=== PATIENT | female | born 1995 | race Caucasian/White ===

== ENCOUNTER 2016-08-01 06:23 | Day surgery (SDC) | payer BC ==
[2016-07-28 09:51] VITALS: BMI 28.8
[~2016-08-01 06:23] MED LIST: DEXAMETHASONE SOD PHOSPHATE 10 MG/ML 1 ML VIAL IV ONE; DEXAMETHASONE SOD PHOSPHATE 4 MG/ML 1 ML VIAL IV ONE; FAMOTIDINE 20 MG/2 ML VIAL IV ONE; ONDANSETRON 4 MG/2 ML VIAL IVP ONE; Pre Op ABX Message 1 EACH MISC MISCELLANE ONE
[2016-08-01] MEDS: LACTATED RINGERS 1,000 ML IV SCH ×2 (06:59→10:31)
[2016-08-01] MEDS ORDERED: LIDOCAINE 1% 20 ML VIAL (10MG/ML) FOR IV START INTRADERMA ONE (07:01)
[2016-08-01] MEDS ORDERED: SCOPOLAMINE 1.5MG/72HR PATCH TRANSDERM ONE (07:01)
[2016-08-01] MEDS ORDERED: LIDOCAINE 1% INJ 10MG/ML (20 ML MDV) ONE (07:27)
[2016-08-01] MEDS ORDERED: NEOSTIGMINE 1 MG/ML 10 ML VIAL ONE (07:27)
[2016-08-01] MEDS ORDERED: PROPOFOL 10 MG/ML 20 ML VIAL IV ONE (07:27)
[2016-08-01] MEDS ORDERED: GLYCOPYRROLATE 0.2 MG/ML 2 ML VIAL ONE (07:27)
[2016-08-01] MEDS ORDERED: MIDAZOLAM 2 MG/2 ML VIAL ONE (07:27)
[2016-08-01] MEDS ORDERED: ROCURONIUM BROMIDE 10 MG/ML 10 ML VIAL IV ONE (07:27)
[2016-08-01] MEDS ORDERED: fentaNYL (PF) 50 MCG/ML 2 ML AMP ONE (07:27)
[2016-08-01] MEDS ORDERED: DEXAMETHASONE SOD PHOS (MDV) 100 MG/10 ML VIAL ONE (07:27)
--- NOTE | 2016-08-01 08:18 | P.OP ---
Date of Procedure: 08/01/16 Preoperative Diagnosis: Chronic Tonsillitis Chronic cryptic tonsillitis Tonsillar hypertrophy Postoperative Diagnosis: Same Procedure(s) Performed: Tonsillectomy Implants: Anesthesia: MAXIMINOA Surgeon: Yariel Christopher Estimated Blood Loss (ml): 5 Pathology: other (Bilateral tonsils) Condition: stable Disposition: PACU Indications for Procedure: Is a 21-year-old white female whose had difficulties with chronic and recurrent tonsillitis as well as chronic tonsillar hypertrophy and cryptic debris in the tonsils Operative Findings: Tonsils +3 bilaterally and are cryptic with sulfur granules in the crypts Description of Procedure: The patient underwent operative suite and placed in a supine position. Patient underwent induction of general anesthesia with oral endotracheal intubation without difficulty. Patient prepped and draped in usual aseptic fashion. The McIvor mouthgag was placed. The soft palate was palpated and no submucous cleft was noted. The left tonsil was grasped with a curved Allis clamp and dissected from the tonsillar fossa in a superior to inferior direction using both blunt and electrocautery dissection until the tonsil was removed. Once tonsils removed hemostasis was gained with suction cautery. Once hemostasis was obtained attention was turned to the right where the right tonsil was removed exactly as the left had been. Once this tonsils removed hemostasis was gained with suction cautery. Once hemostasis was obtained and remained good in both tonsillar fossa the patient was suctioned in oral gastric fashion the patient was allowed to emerge from general anesthesia having tolerated procedure well was extended the operating suite and transferred postoperative recovery area in satisfactory condition.
[2016-08-01 08:39] VITALS: RESP 16; TEMP 97.3
[2016-08-01 10:02] VITALS: BP 140/79; PULSE 54
== END 2016-08-01 10:38 | disposition home or self-care (01) ==
LOC: OR 06:23
PROVIDERS: ATTEND Otolaryngology
DX: J35.01 Chronic tonsillitis (principal); Z88.0 Allergy status to penicillin; Z88.1 Allergy status to other antibiotic agents; Z79.3 Long term (current) use of hormonal contraceptives
CPT/HCPCS: 42826; 81025; 88304; J2250; J1100 ×2; J2710; J2405; J2001; J3010; J2704

== ENCOUNTER → 2017-04-30 | Outpatient (CLI) | payer BC ==
[2017-04-30 10:36] LABS: HCT 41.9 % (34.0-46.0); HGB 13.6 gm/dL (11.4-16.0); MCH 26.3 pg (25.0-35.0); MCHC 32.3 g/dL (31.0-37.0); MCV 81.3 fL (80.0-100.0); Mean Platelet Volume 7.2; Platelet Count 246 k/uL (150-450); RBC 5.16 m/uL (3.80-5.40); RDW 13.2 % (11.5-15.5)
[2017-04-30 10:53] LABS: ALT 29 U/L (9-52); AST 23 U/L (14-36); Alkaline Phosphatase 79 U/L (38-126); Anion Gap 9 mmol/L; Blood Urea Nitrogen 11 mg/dL (7-17); Calcium 9.7 mg/dL (8.4-10.2); Carbon Dioxide 27 mmol/L (22-30); Chloride 105 mmol/L (98-107); Cholesterol 146 mg/dL (<200); Glucose 87 mg/dL (74-99); HDL Cholesterol 58 mg/dL (40-60); LDL Cholesterol,Calculated 65 mg/dL (0-99); Potassium 4.6 mmol/L (3.5-5.1); Sodium 141 mmol/L (137-145); Total Bilirubin 0.3 mg/dL (0.2-1.3); Total Protein 6.9 g/dL (6.3-8.2); Triglycerides 115 mg/dL (<150)
== END | disposition home or self-care (01) ==
LOC: LABWHC1 09:48
DX: R63.5 Abnormal weight gain (principal)
CPT/HCPCS: 36415; 80053; 80061; 84443; 85027

== ENCOUNTER → 2021-01-18 | Outpatient (CLI) | payer BC | END | disposition home or self-care (01) | LOC: LABWHC1 13:42 | PROVIDERS: ATTEND Family Medicine | DX: J02.9 Acute pharyngitis, unspecified (principal); R13.10 Dysphagia, unspecified | CPT/HCPCS: 87070; 87430; U0003 ==

== ENCOUNTER 2022-06-22 12:01 | Emergency (ER) | payer BC ==
[2022-06-22 12:26] VITALS: BP 143/80; RESP 18
[2022-06-22 12:28] VITALS: TEMP 98.7
[2022-06-22] MEDS ORDERED: PYRIDOXINE 100 MG/ML 1 ML VIAL IVP ONE (12:41)
[2022-06-22] MEDS ORDERED: SODIUM CHLORIDE 0.9% 2,000 ML IV STA (12:41)
[2022-06-22] MEDS ORDERED: diphenhydrAMINE 50 MG/ML 1 ML VIAL IVP STA (12:41)
[2022-06-22] MEDS ORDERED: ACETAMINOPHEN TAB 325 MG TAB PO STA (12:41)
--- NOTE | 2022-06-22 12:47 | ED ---
Abdominal Pain HPI - General Chief Complaint: Abdominal Pain Stated Complaint: 5 weeks Preg. Abd pain Time Seen by Provider: 06/22/22 12:21 Source: patient, RN notes reviewed Mode of arrival: ambulatory Limitations: no limitations - History of Present Illness Initial Comments: This is a 27-year-old female who presents to the emergency department for abdo gilmar pain in . Patient is currently 5.5 weeks and . 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 Patient states that this started 1-2 days ago. Also has pain in the lower back. She is not taking anything for her pain, as she is unsure what she can take in . Does report dry heaving all day yesterday and states that her mom had morning sickness when she was as well. Denies any changes in bowel or bladder habits. Denies any vaginal bleeding or discharge. Denies any fevers, chills, sore throat, cough, dyspnea, chest pain, pa lpitations, diarrhea, or headaches. MD Complaint: abdominal pain Associated Symptoms: nausea, vomiting - Related Data Home Medications Medication Instructions Recorded Confirmed desogestreL-ethinyl estradioL 1 tab PO HS 11/22/15 08/01/16 [Apri 28 Day Tablet] Previous Rx's Medication Instructions Recorded Doxylamine Succinate/Vit B6 1 each PO DIRECTED PRN #30 tab 06/22/22 [Doxylamine-Pyridoxine 10-10 mg] Allergies Allergy/AdvReac Type Severity Reaction Status Date / Time cephalexin [From Keflex] Allergy Unknown Verified 06/22/22 12:26 Childhood Penicillins Allergy Unknown Verified 06/22/22 12:26 Childhood Review of Systems ROS Statement: Those systems with pertinent positive or pertinent negative responses have been documented in the HPI. ROS Other: All systems not noted in ROS Statement are negative. Past Medical History Past Medical History: No Reported History History of Any Multi-Drug Resistant Organisms: None Reported Past Surgical History: Tonsillectomy Additional Past Surgical History / Comment(s): wisdom teeth removal Past Anesthesia/Blood Transfusion Reactions: Motion Sickness Past Psychological History: No Psychological Hx Reported Smoking Status: Never smoker Past Alcohol Use History: None Reported Past Drug Use History: None Reported - Past Family History Mother Family Medical History: No Reported History General Exam Limitations: no limitations General appearance: alert, in no apparent distress Head exam: Present: atraumatic, normocephalic, normal inspection Respiratory exam: Present: normal lung sounds bilaterally. Absent: respiratory distress, wheezes, rales, rhonchi, stridor Cardiovascular Exam: Present: regular rate, normal rhythm, normal heart sounds. Absent: systolic murmur, diastolic murmur, rubs, gallop, clicks Back exam: Absent: tenderness Neurological exam: Present: alert, oriented X3, CN II-XII intact Psychiatric exam: Present: normal affect, normal mood Skin exam: Present: warm, dry, intact, normal color. Absent: rash Course Vital Signs 06/22/22 06/22/22 12:23 15:46 Temperature 98.7 F Pulse Rate 105 H 92 Respiratory 18 18 Rate Blood Pressure 143/80 O2 Sat by Pulse 98 98 Oximetry Medical Decision Making - Medical Decision Making This is a 27-year-old female who presents to the emergency department for abdominal pain in . Was pt. sent in by a medical professional or institution? @ -No Did you speak to anyone other than the patient for history? @ -No Did you review nursing and triage notes? @ -Yes, and I agree, it is accurate with regards to the patient's symptoms. Were old charts reviewed? @ -No Differential Diagnosis? @ -Differential Abdominal Pain Women: Appendicitis, Cholecystitis, diverticulosis, ischemic bowel, pancreatitis, hepatitis, UTI, gastroenteritis, AAA, incarcerated hernia, bowel obstruction, constipation, inflammatory bowel, hepatitis, peptic ulcer disease, splenic infarction, perforated viscus, vulvitis, ovarian torsion, PID, kidney stone, placenta abruption, this is not meant to be an all-inclusive list What testing was considered but not performed? (CT, X-rays, U/S, labs)? Why? @ -None What meds were considered but not given? Why? @ -None Did you discuss the management of the patient with other professionals? @ -No Did you reconcile home meds? @ -No Was smoking cessation discussed for >3mins.? @ -No Was critical care preformed (if so, how long)? @ -No Were there social determinants of health that impacted care today? How? (Homelessness, low income, unemployed, alcoholism, drug addiction, transportation, low edu. Level, literacy, decrease access to med. care, senior living, rehab)? @ -No Was there de-escalation of care discussed even if they declined? (Discuss DNR or withdrawal of care, Hospice)? @ -No What co-morbidities impacted this encounter? (DM, HTN, Smoking, COPD, CAD, Cancer, CVA, Hep., AIDS, mental health diagnosis, sleep apnea, morbid obesity)? @ - Was patient admitted / discharged? @ -Discharged. Lab work obtained suggesting minor dehydration. Patient also had low blood sugar, however she states that she has not yet eaten today. She was able to have some food in the emergency department. She was given a 2L bolus of IV fluids, Tylenol, Benadryl, and vitamin B6. She did feel like symptoms improved following medication administration. Obstetrics ultrasound obtained. Intrauterine gestational sac with yolk sac was identified. pole was not yet identified due to how early on the patient is in . Findings reviewed with the patient. Advised Tylenol as needed for any additional pain. Prescription for Diclegis provided with dosing instructions reviewed. Advised [id number] vitamin B6 and Unisom if the Diclegis is not covered by her insurance. Patient is already taking a vitamin, which she will continue to do. She'll follow up with Dr. Garcia as scheduled next month, sooner if needed. Undiagnosed new problem with uncertain prognosis? @ -None Drug Therapy requiring intensive monitoring for toxicity (Heparin, Nitro, Insulin, Cardizem)? @ -None Were any procedures done? @ -None Diagnosis/symptom? @ -Abdominal pain in Acute, or Chronic, or Acute on Chronic? @ -Acute Uncomplicated (without systemic symptoms) or Complicated (systemic symptoms)? @ -Uncomplicated Side effects of treatment? @ -None Exacerbation, Progression, or Severe Exacerbation] @ -Not applicable Poses a threat to life or bodily function? @ -No Return precautions reviewed in depth, the patient is instructed to return to the emergency department with any new, worsening, or concerning symptoms. Patient verbalized understanding. This case was discussed in detail with the attending ED physician, Dr. Valdez. Presentation, findings, and treatment plan discussed in detail as well. - Lab Data Result diagrams: 06/22/22 12:57 06/22/22 14:45 Lab Results 06/22/22 06/22/22 06/22/22 Range/Units 12:57 13:26 14:45 WBC 7.6 (3.8-10.6) k/uL RBC 4.98 (3.80-5.40) m/uL Hgb 13.1 (11.4-16.0) gm/dL Hct 40.6 (34.0-46.0) % MCV 81.5 (80.0-100.0) fL MCH 26.3 (25.0-35.0) pg MCHC 32.2 (31.0-37.0) g/dL RDW 12.9 (11.5-15.5) % Plt Count 208 (150-450) k/uL MPV 7.7 Neutrophils % 82 % Lymphocytes % 12 % Monocytes % 3 % Eosinophils % 2 % Basophils % 0 % Neutrophils # 6.2 (1.3-7.7) k/uL Lymphocytes # 0.9 L (1.0-4.8) k/uL Monocytes # 0.3 (0-1.0) k/uL Eosinophils # 0.1 (0-0.7) k/uL Basophils # 0.0 (0-0.2) k/uL Sodium 135 L (137-145) mmol/L Potassium 3.7 (3.5-5.1) mmol/L Chloride 108 H (98-107) mmol/L Carbon Dioxide 18 L (22-30) mmol/L Anion Gap 9 mmol/L BUN 9 (7-17) mg/dL Creatinine 0.54 (0.52-1.04) mg/dL Est GFR (CKD-EPI)AfAm >90 (>60 ml/min/1.73 sqM) Est GFR (CKD-EPI)NonAf >90 (>60 ml/min/1.73 sqM) Glucose 72 L (74-99) mg/dL Calcium 7.9 L (8.4-10.2) mg/dL Total Bilirubin 0.4 (0.2-1.3) mg/dL AST 25 (14-36) U/L ALT 20 (4-34) U/L Alkaline Phosphatase 61 (38-126) U/L Total Protein 6.0 L (6.3-8.2) g/dL Albumin 3.4 L (3.5-5.0) g/dL HCG, Quant 09909.8 mIU/mL Urine Color Yellow Urine Appearance Clear (Clear) Urine pH 6.0 (5.0-8.0) Ur Specific [place] 1.024 (1.001-1.035) Urine Protein Trace H (Negative) Urine Glucose (UA) Negative (Negative) Urine Ketones 2+ H (Negative) Urine Blood Negative (Negative) Urine Nitrite Negative (Negative) Urine Bilirubin Negative (Negative) Urine Urobilinogen <2.0 (<2.0) mg/dL Ur Leukocyte Esterase Moderate H (Negative) Urine RBC <1 (0-5) /hpf Urine WBC 3 (0-5) /hpf Ur Squamous Epith Cells 6 H (0-4) /hpf Urine Bacteria Rare H (None) /hpf Urine Mucus Many H (None) /hpf Blood Type Blood Type Recheck Bld Type Recheck Status 06/22/22 Range/Units 14:45 WBC (3.8-10.6) k/uL RBC (3.80-5.40) m/uL Hgb (11.4-16.0) gm/dL Hct (34.0-46.0) % MCV (80.0-100.0) fL MCH (25.0-35.0) pg MCHC (31.0-37.0) g/dL RDW (11.5-15.5) % Plt Count (150-450) k/uL MPV Neutrophils % % Lymphocytes % % Monocytes % % Eosinophils % % Basophils % % Neutrophils # (1.3-7.7) k/uL Lymphocytes # (1.0-4.8) k/uL Monocytes # (0-1.0) k/uL Eosinophils # (0-0.7) k/uL Basophils # (0-0.2) k/uL Sodium (137-145) mmol/L Potassium (3.5-5.1) mmol/L Chloride (98-107) mmol/L Carbon Dioxide (22-30) mmol/L Anion Gap mmol/L BUN (7-17) mg/dL Creatinine (0.52-1.04) mg/dL Est GFR (CKD-EPI)AfAm (>60 ml/min/1.73 sqM) Est GFR (CKD-EPI)NonAf (>60 ml/min/1.73 sqM) Glucose (74-99) mg/dL Calcium (8.4-10.2) mg/dL Total Bilirubin (0.2-1.3) mg/dL AST (14-36) U/L ALT (4-34) U/L Alkaline Phosphatase (38-126) U/L Total Protein (6.3-8.2) g/dL Albumin (3.5-5.0) g/dL HCG, Quant mIU/mL Urine Color Urine Appearance (Clear) Urine pH (5.0-8.0) Ur Specific [place] (1.001-1.035) Urine Protein (Negative) Urine Glucose (UA) (Negative) Urine Ketones (Negative) Urine Blood (Negative) Urine Nitrite (Negative) Urine Bilirubin (Negative) Urine Urobilinogen (<2.0) mg/dL Ur Leukocyte Esterase (Negative) Urine RBC (0-5) /hpf Urine WBC (0-5) /hpf Ur Squamous Epith Cells (0-4) /hpf Urine Bacteria (None) /hpf Urine Mucus (None) /hpf Blood Type O Positive Blood Type Recheck No Previous Record Bld Type Recheck Status ABR ONLY - Radiology Data Radiology results: report reviewed, image reviewed Disposition Clinical Impression: Abdominal pain during Disposition: HOME SELF-CARE Instructions (If sedation given, give patient instructions): Abdominal Pain in (ED) Additional Instructions: Return to the emergency department with any new, worsening, or concerning symptoms. Only take Tylenol as needed for abdominal pain. Do not take any vxpf-vjr-utqjoyl anti-inflammatories such as ibuprofen. Make sure that you're taking a vitamin. You can take the doxylamine pyridoxine up to 3 times daily as needed for nausea and vomiting. Start with 2 tablets at night, if symptoms persist after 2 days, increase dosage to 1 tablet every morning and 2 tablets at night. You may further increase the dose if needed to 1 tablet in the morning, 1 tablet in the mid to afternoon, and 2 tablets at night, with a maximum of 4 tablets each day. Take this on an empty stomach. If it is too expensive at the pharmacy, you can purchase ybmv-gaf-ifglxyw vitamin B6 and Unisom for the same effect. Follow up with Dr. Garcia as scheduled. Prescriptions: Doxylamine Succinate/Vit B6 [Doxylamine-Pyridoxine 10-10 mg] 1 each PO DIRECTED PRN #30 tab PRN Reason: Nausea And Vomiting Is patient prescribed a controlled substance at d/c from ED?: No Referrals: Melany,Shan, MD [Primary Care Provider] - 1-2 days
[2022-06-22 13:10] LABS: Basophils % (A) 0 %; Eosinophils # (A) 0.1 k/uL (0-0.7); Eosinophils % (A) 2 %; HCT 40.6 % (34.0-46.0); HGB 13.1 gm/dL (11.4-16.0); Lymphocytes # (A) 0.9 k/uL (1.0-4.8); Lymphocytes % (A) 12 %; MCH 26.3 pg (25.0-35.0); MCHC 32.2 g/dL (31.0-37.0); MCV 81.5 fL (80.0-100.0); Mean Platelet Volume 7.7; Monocytes # (A) 0.3 k/uL (0-1.0); Monocytes % (A) 3 %; Neutrophils # (A) 6.2 k/uL (1.3-7.7); Neutrophils % (A) 82 %; Platelet Count 208 k/uL (150-450); RBC 4.98 m/uL (3.80-5.40); RDW 12.9 % (11.5-15.5); WBC 7.6 k/uL (3.8-10.6)
[2022-06-22 13:44] LABS: Appearance,Urine Clear (Clear); Bacteria,Urine Rare /hpf; Bilirubin,Urine Negative (Negative); Blood,Urine Negative (Negative); Color,Urine Yellow; Glucose,Urine (UA) Negative (Negative); Ketones,Urine 2+ (Negative); Leukocyte Esterase,Urine Moderate (Negative); Mucus,Urine Many /hpf; Nitrite,Urine Negative (Negative); Protein,Urine Trace (Negative); RBC,Urine <1 /hpf (0-5); Specific Gravity,Urine 1.024 (1.001-1.035); Squamous Epithelial Cell,Urine 6 /hpf (0-4); Urobilinogen,Urine <2.0 mg/dL (<2.0); WBC,Urine 3 /hpf (0-5)
--- NOTE | 2022-06-22 14:23 | US ---
EXAMINATION TYPE: Transabdominal DATE OF EXAM: 06/22/2022 2:12 PM COMPARISON: NONE CLINICAL INDICATION: Female, 27 years old with history of Abdominal pain in ; abdominal pain EXAM PERFORMED: Transvaginal (TV) and Transabdominal (TA) EXAM MEASUREMENTS: GESTATIONAL AGE / DATING Physician Established: Not yet established Dates by LMP: (5 weeks/4 days) EDC: 02/18/23 Dates by First Scan: No previous this is first scan Dates by Current Scan for: (5 weeks/1 days) - MSD MATERNAL ANATOMY Uterus: 7.7 x 4.9 x 5.7cm Right Ovary: 3.1 x 2.6 x 2.7cm Left Ovary: 2.7 x 1.9 x 1.9cm Post CDS / Adnexa: appears wnl Presence of free fluid: no Presence of corpus luteal cyst: yes, right ovary = 1.8 x 2.0 x 2.0cm GESTATION / SURVEY MSD: 1.1cm (5 weeks/1 days) Yolk Sac (normal less than 6mm): 2mm IUP: no evidence of pole at this time Date of LMP: 05/14/22 Beta HcG (if available): Not available at this time IMPRESSION: Intrauterine gestational sac with yolk sac identified corresponding to ultrasound age of 5 weeks 1 da y. No pole is identified at this time likely due to early gestational age. Recommend follow-up with pelvic ultrasound and serial beta hCG to ensure further development of the fetus.
[2022-06-22 15:20] LABS: ALT 20 U/L (4-34); AST 25 U/L (14-36); African American GFR (CKD) >90 (>60 ml/min/1.73 sqM); Albumin 3.4 g/dL (3.5-5.0); Alkaline Phosphatase 61 U/L (38-126); Anion Gap 9 mmol/L; Blood Urea Nitrogen 9 mg/dL (7-17); Calcium 7.9 mg/dL (8.4-10.2); Carbon Dioxide 18 mmol/L (22-30); Chloride 108 mmol/L (98-107); Glucose 72 mg/dL (74-99); Non-African American GFR(CKD) >90 (>60 ml/min/1.73 sqM); Potassium 3.7 mmol/L (3.5-5.1); Sodium 135 mmol/L (137-145); Total Bilirubin 0.4 mg/dL (0.2-1.3)
[2022-06-22 15:36] LABS: HCG,Quantitative Serum 12125.8 mIU/mL
[2022-06-22 15:47] VITALS: PULSE 92
== END 2022-06-22 15:47 | disposition home or self-care (01) ==
LOC: EC 12:01
DX: O26.891 Other specified pregnancy related conditions, first trimester (principal); R10.9 Unspecified abdominal pain; Z88.0 Allergy status to penicillin; Z88.1 Allergy status to other antibiotic agents; Z3A.01 Less than 8 weeks gestation of pregnancy
CPT/HCPCS: 36415; 86900; 86901; 80053; 85025; 81001; 84702; 76801; 76817; 99284; 96374; 96375; 96361 ×2; J1200; J3415

== ENCOUNTER 2023-01-28 18:42 | Outpatient (CLI) | payer BC ==
[2023-01-28 20:03] LABS: Eosinophils % (A) 1 %; HCT 32.3 % (34.0-46.0); HGB 10.7 gm/dL (11.4-16.0); Hypochromasia Slight; Lymphocytes % (A) 28 %; MCH 25.2 pg (25.0-35.0); MCHC 33.3 g/dL (31.0-37.0); MCV 75.9 fL (80.0-100.0); Monocytes % (A) 5 %; Neutrophils % (A) 64 %; Platelet Count 213 k/uL (150-450); RBC 4.25 m/uL (3.80-5.40); RDW 13.3 % (11.5-15.5)
[2023-01-28 20:04] LABS: Basophils % (A) 0 %; Eosinophils # (A) 0.1 k/uL (0-0.7); Lymphocytes # (A) 2.8 k/uL (1.0-4.8); Monocytes # (A) 0.5 k/uL (0-1.0); Neutrophils # (A) 6.4 k/uL (1.3-7.7)
[2023-01-28 20:18] LABS: Bacteria,Urine Rare /hpf; RBC,Urine 2 /hpf (0-5); Squamous Epithelial Cell,Urine 1 /hpf (0-4); WBC,Urine 5 /hpf (0-5)
[2023-01-28 20:22] LABS: ALT 17 U/L (4-34); AST 26 U/L (14-36); African American GFR (CKD) >90 (>60 ml/min/1.73 sqM); Blood Urea Nitrogen 5 mg/dL (7-17); LDH 201 U/L (120-246); Magnesium 1.5 mg/dL (1.6-2.3); Non-African American GFR(CKD) >90 (>60 ml/min/1.73 sqM)
[2023-01-28 20:24] LABS: Appearance,Urine Clear (Clear); Bilirubin,Urine Negative (Negative); Blood,Urine Negative (Negative); Color,Urine Yellow; Creatinine,Urine Random 71.9 mg/dL; Glucose,Urine (UA) Negative (Negative); Ketones,Urine Negative (Negative); Leukocyte Esterase,Urine Moderate (Negative); Nitrite,Urine Negative (Negative); Protein,Urine Negative (Negative); Protein/Creatinine Ratio,Urine 0.125; Urobilinogen,Urine <2.0 mg/dL (<2.0)
[2023-01-28 21:07] LABS: INR 0.8 (<1.2); Partial Thromboplastin Time 23.5 sec (22.0-30.0); Prothrombin Time 9.6 sec (10.0-12.5)
[2023-01-28 22:20] VITALS: BP 148/78; PULSE 106; RESP 16; TEMP 97.5
--- NOTE | 2023-03-11 16:18 | P.MSEPDOC ---
Presenting Problems - Arrival Data Date of Arrival on Unit: 01/28/23 Time of Arrival on Unit: 18:42 Mode of Transport: Ambulatory - Complaint OB-Reason for Admission/Chief Complaint: PIH Medical History - Information : 1 Para: 0 Term: 0 : 0 Abortions: Spontaneous or Elective: 0 Number of Living Children: 0 - Gestational Age Gestational Age by STACEY (wks/days): 37 Weeks and 0 Days - History Complications: GDM Review of Systems - Review of Systems Constitutional: No problems Breast: No problems ENT: No problems Cardiovascular: No problems Respiratory: No problems Gastrointestinal: No problems Genitourinary: No problems Musculoskeletal: No problems Neurological: No problems Skin: No problems Vital Signs - Temperature Temperature: 97.5 F Temperature Source: Temporal Artery Scan - Pulse Right Brachial Pulse Rate: 106 Pulse Assessment Method: Automatic Cuff - Respirations Respiratory Rate: 16 Oxygen Delivery Method: Room Air O2 Sat by Pulse Oximetry: 100 - Blood Pressure Right Arm Blood Pressure: 148/78 Blood Pressure Mean: 101 Blood Pressure Source: Automatic Cuff Medical Screen Scoring - Cervical Exam Dilation (cm): 1 Effacement (%): 50 Station: -3 Membranes: Intact - Uterine Contractions Resting: Soft to palpation - Assessment - Baby A Baseline FHR: 130 Heart Rate - NICHD Category: Category I (Normal) NST: Reactive Physician Notification - Physician Notified Physician Notified Date: 01/28/23 Physician Notified Time: 19:25 Physician: Ely Garcia New Order Received: No - Notification Comment Comment: 1924- Dr. Garcia called with report [facility] labs ordered, NST, and cervical exam. 2125- Dr. Garcia updated [facility] labs, bps, FHT, no contractions, cervical exam /3. Patient to be dsicharged home, no work tomorrow, follow up on in office. Maternal Triage Index - Maternal Triage Index Presenting for scheduled procedure w/no complaint: No - Stat/Priority 1 Stat Priority 1: No - Urgent/Priority 2 Urgent Priority 2: No - Prompt/Priority 3 Prompt Priority 3: Yes Criteria Met for Priority 3: elevated bp 148/79 138/77 and 139/69 Disposition - Disposition OB Disposition: Discharge to home Discharge Date: 01/28/23 Discharge Time: 21:34 I agree with the RN Medical Screening Exam: Yes Case reviewed; plan agreed upon as documented in EMR&OBIX.: Yes Diagnosis: RELATED CONDITIONS, UNSPECIFIED, THIRD TRIMESTER
== END 2023-01-28 21:34 ==
LOC: FBPOP 18:42
PROVIDERS: ATTEND Obstetrics & Gynecology Obstetrics
DX: O13.3 Gestational [pregnancy-induced] hypertension without significant proteinuria, third trimester (principal); O24.415 Gestational diabetes mellitus in pregnancy, controlled by oral hypoglycemic drugs; Z3A.37 37 weeks gestation of pregnancy; Z79.82 Long term (current) use of aspirin; Z88.1 Allergy status to other antibiotic agents; Z88.0 Allergy status to penicillin
CPT/HCPCS: 36415; 59025; 81001; 82565; 82570; 83615; 83735; 84156; 84450; 84460; 84520; 84550; 85025; 85384; 85610; 85730; 99215

== ENCOUNTER 2023-01-30 21:30 | Outpatient (CLI) | payer BC ==
[2023-01-30 22:28] LABS: Creatinine,Urine Random 133.9 mg/dL; Protein/Creatinine Ratio,Urine 0.037
[2023-01-30 22:36] LABS: Bacteria,Urine Rare /hpf; Mucus,Urine Occasional /hpf; RBC,Urine 1 /hpf (0-5); Squamous Epithelial Cell,Urine 2 /hpf (0-4); WBC,Urine 10 /hpf (0-5)
[2023-01-30 22:37] LABS: Appearance,Urine Clear (Clear); Bilirubin,Urine Negative (Negative); Blood,Urine Negative (Negative); Color,Urine Yellow; Glucose,Urine (UA) Negative (Negative); Ketones,Urine Negative (Negative); Nitrite,Urine Negative (Negative); PH, Urine 6.5 (5.0-8.0); Protein,Urine Negative (Negative); Urobilinogen,Urine <2.0 mg/dL (<2.0)
[2023-01-30 22:40] LABS: Leukocyte Esterase,Urine Large (Negative)
[2023-01-30 22:50] LABS: Basophils % (A) 0 %; Eosinophils # (A) 0.3 k/uL (0-0.7); Eosinophils % (A) 3 %; HGB 10.2 gm/dL (11.4-16.0); Hypochromasia Slight; Lymphocytes # (A) 2.5 k/uL (1.0-4.8); Lymphocytes % (A) 26 %; MCH 24.9 pg (25.0-35.0); MCHC 32.8 g/dL (31.0-37.0); MCV 75.8 fL (80.0-100.0); Monocytes # (A) 0.5 k/uL (0-1.0); Monocytes % (A) 5 %; Neutrophils # (A) 6.1 k/uL (1.3-7.7); Neutrophils % (A) 64 %; Platelet Count 177 k/uL (150-450); RBC 4.08 m/uL (3.80-5.40); RDW 13.5 % (11.5-15.5); WBC 9.5 k/uL (3.8-10.6)
[2023-01-30 22:58] LABS: ALT 15 U/L (4-34); AST 21 U/L (14-36); African American GFR (CKD) >90 (>60 ml/min/1.73 sqM); Blood Urea Nitrogen 7 mg/dL (7-17); LDH 182 U/L (120-246); Non-African American GFR(CKD) >90 (>60 ml/min/1.73 sqM); Uric Acid 3.7 mg/dL (3.7-7.4)
[2023-01-31 00:33] VITALS: BP 143/82; PULSE 98; RESP 16; TEMP 98.3
--- NOTE | 2023-02-20 17:33 | P.MSEPDOC ---
Presenting Problems - Arrival Data Date of Arrival on Unit: 01/30/23 Time of Arrival on Unit: 21:30 Mode of Transport: Ambulatory - Complaint OB-Reason for Admission/Chief Complaint: Elevated Blood Pressure Comment: Pt came in states her bp was elevated at home Medical History - Information : 1 Para: 0 Term: 0 : 0 Abortions: Spontaneous or Elective: 0 Number of Living Children: 0 - Gestational Age Gestational Age by STACEY (wks/days): 37 Weeks and 2 Days - History Complications: GDM Review of Systems - Review of Systems Constitutional: No problems Breast: No problems ENT: No problems Cardiovascular: No problems Respiratory: No problems Gastrointestinal: No problems Genitourinary: No problems Musculoskeletal: No problems Neurological: No problems Skin: No problems Vital Signs - Temperature Temperature: 98.3 F Temperature Source: Oral - Pulse Right Sitting Pulse Rate: 98 Pulse Assessment Method: Automatic Cuff - Respirations Respiratory Rate: 16 Oxygen Delivery Method: Room Air O2 Sat by Pulse Oximetry: 100 - Blood Pressure Right Arm Sitting Blood Pressure: 143/82 Blood Pressure Mean: 102 Blood Pressure Source: Automatic Cuff Medical Screen Scoring - Assessment - Baby A Baseline FHR: 125 Heart Rate - NICHD Category: Category I (Normal) NST: Reactive Physician Notification - Physician Notified Physician Notified Date: 01/30/23 Physician Notified Time: 22:00 Physician: Dalila Acuna Order Received: Yes (PIH labs, UA, serial blood pressures) - Notification Comment Comment: All PIH labs are WNL, bp upon discharge 124/56 heart rate 73. Pt has apt with Tremp at 1300, and is sced for IOL on 02/05. Pt feeling good and feels comfortable being discharged. Maternal Triage Index - Maternal Triage Index Presenting for scheduled procedure w/no complaint: No - Stat/Priority 1 Stat Priority 1: No - Urgent/Priority 2 Urgent Priority 2: No - Prompt/Priority 3 Prompt Priority 3: Yes Criteria Met for Priority 3: Pt c/o of increased bp at home. 143/82 upon admission to triage. Pt has edema in bilateral lower ext., denies any other symptoms. Disposition - Disposition OB Disposition: Discharge to home, Written follow up instructions reviewed Discharge Date: 01/30/23 Discharge Time: 23:30 I agree with the RN Medical Screening Exam: Yes Physician's MSE Comment: I have neither seen nor examined the patient. Case reviewed; plan agreed upon as documented in EMR&OBIX.: Yes Diagnosis: RELATED CONDITIONS, UNSPECIFIED, THIRD TRIMESTER
== END 2023-01-30 23:30 | disposition home or self-care (01) ==
LOC: FBPOP 21:30
PROVIDERS: ATTEND Obstetrics & Gynecology
DX: O14.93 Unspecified pre-eclampsia, third trimester (principal); Z3A.37 37 weeks gestation of pregnancy; Z88.0 Allergy status to penicillin; Z79.82 Long term (current) use of aspirin; Z88.1 Allergy status to other antibiotic agents
CPT/HCPCS: 36415; 59025; 81001; 82565; 82570; 83615; 84156; 84450; 84460; 84520; 84550; 85025; 99215

== ENCOUNTER 2023-02-04 16:50 | Inpatient (IN) | payer BC ==
[2023-02-04] MEDS ORDERED: DINOPROSTONE 10 MG INSERT.ER VAGINAL ONE (17:02)
[2023-02-04] MEDS ORDERED: NALBUPHINE 10 MG/ML (10 ML MDV) IV PRN (17:19)
[2023-02-04 18:27] LABS: Basophils % (A) 0 %; Eosinophils # (A) 0.1 k/uL (0-0.7); Eosinophils % (A) 2 %; HCT 30.9 % (34.0-46.0); HGB 10.3 gm/dL (11.4-16.0); Hypochromasia Slight; Lymphocytes # (A) 1.8 k/uL (1.0-4.8); Lymphocytes % (A) 24 %; MCH 25.4 pg (25.0-35.0); MCHC 33.2 g/dL (31.0-37.0); MCV 76.4 fL (80.0-100.0); Mean Platelet Volume 10.9; Monocytes # (A) 0.3 k/uL (0-1.0); Monocytes % (A) 4 %; Neutrophils # (A) 5.1 k/uL (1.3-7.7); Neutrophils % (A) 69 %; Platelet Count 196 k/uL (150-450); RBC 4.05 m/uL (3.80-5.40); RDW 13.9 % (11.5-15.5); WBC 7.4 k/uL (3.8-10.6)
[2023-02-05] MEDS ORDERED: METHYLERGONOVINE 0.2 MG/ML 1 ML AMP IM PRN (04:57)
[2023-02-05] MEDS ORDERED: miSOPROStoL 200 MCG TAB PO PRN (04:57)
[2023-02-05] MEDS ORDERED: LIDOCAINE 0.5% (PF) 5 MG/ML (50 ML SDV) SQ PRN (04:57)
[2023-02-05] MEDS ORDERED: OXYTOCIN 10 UNIT/ML 1 ML VIAL IM PRN (04:57)
[2023-02-05] MEDS ORDERED: TRANEXAMIC 1,000 MG/100ML-NACL 1,000 MG in EMPTY BAG 1 BAG IV PRN (04:57)
[2023-02-05] MEDS ORDERED: TERBUTALINE 1 MG/ML VIAL SQ PRN (04:57)
[2023-02-05] MEDS ORDERED: CARBOPROST TROMETHAMINE 250 MCG/ML 1 ML AMP IM PRN (04:57)
[2023-02-05] MEDS ORDERED: OXYTOCIN 30 UNITS/500 ML NS 30 UNIT in SALINE 1 500ML.BAG IV SCH (05:00)
[2023-02-05] MEDS: LACTATED RINGERS 1,000 ML IV SCH ×2 (05:03→08:24)
[2023-02-05] MEDS ORDERED: ROPIVACAINE 5 MG/ML 30 ML VIAL ONE (08:31)
[2023-02-05] MEDS ORDERED: fentaNYL (PF) 50 MCG/ML 5 ML AMP ONE (08:31)
[2023-02-05] MEDS ORDERED: SODIUM CHLORIDE 0.9% 250 ML BAG ONE (08:31)
[2023-02-05] MEDS ORDERED: ZOLPIDEM 5 MG TAB PO PRN (15:14)
[2023-02-05] MEDS ORDERED: HYDROCORTISONE 2.5% RECTAL CREAM 30 GM TUBE RECTAL PRN (15:14)
[2023-02-05] MEDS ORDERED: BENZOCAINE/MENTHOL SPRAY 1 GM/SPRAY AEROSOL TOPICAL PRN (15:14)
[2023-02-05] MEDS ORDERED: LANOLIN CREAM 5 GM TUBE TOPICAL PRN (15:14)
[2023-02-05] MEDS ORDERED: diphenhydrAMINE 50 MG/ML 1 ML VIAL IVP PRN ×2 (15:14)
[2023-02-05] MEDS ORDERED: diphenhydrAMINE 50 MG CAP PO PRN (15:14)
[2023-02-05] MEDS ORDERED: diphenhydrAMINE 25 MG CAP PO PRN (15:14)
[2023-02-05] MEDS ORDERED: SIMETHICONE 80 MG CHEWABLE PO PRN (15:14)
--- NOTE | 2023-02-05 15:14 | P.PROBDLV ---
Vaginal Delivery Note - . Vaginal Delivery Note: 27-year-old that presented to labor and delivery at 38 and one sevenths weeks for induction of labor. Patient was known gestational diabetes with gestational hypertension. Patient was admitted last evening for Cervidil induction of labor. Patient became uncomfortable this morning requested Nubain 1. Patient had rupture of membranes around 445. Patient was noted to be 470 m dilated this a.m. and soon requested epidural. Epidural was placed without difficulty by the anesthesia department. Patient made good progress towards complete began pushing. With excellent maternal effort patient had a normal spontaneous vaginal delivery of a viable female at 1446 in occiput posterior presentation. Weight of 7 lbs. 2 oz. and Apgars of 8 and 9 at one and 5 minutes respectively. After two-minute delayed the umbilical cord was doubly clamped and cut and the stent was delivered spontaneously intact with a three- vessel cord being noted. The bladder was drained for 25 mL of clear yellow urine, a good amount of bleeding was appreciated therefore Hemabate was given. On inspection the patient's vaginal vault a midline second-degree laceration was appreciated. This was repaired in usual fashion with 3-0 Rapide. Uterus is noted to be firm and below the umbilicus at this time. Laceration site was inspected and found to be hemostatic. All counts were correct 2. Patient and infant tolerated delivery well and are resting comfortably.
[2023-02-05] MEDS: IBUPROFEN 600 MG TAB PO SCH ×2 (17:02→23:14)
[2023-02-05] MEDS ORDERED: LABETALOL 100 MG TAB PO PRN (17:56)
[2023-02-05] MEDS: SENNOSIDES-DOCUSATE SODIUM 1 EACH TAB PO SCH (21:11)
[2023-02-05] MEDS: ACETAMINOPHEN TAB 325 MG TAB PO PRN (23:08)
--- NOTE | 2023-02-06 08:14 | P.HPOB ---
History of Present Illness H&P Date: 02/04/23 Chief Complaint: IUP @ 38 , GDM, gestational HTN 7-year-old 1 para 0 at 38 weeks of that presents for induction of labor secondary to gestational diabetes and gestational hypertension. Patient has had episodes of blood pressures and was seen in triage multiple times with negative preeclampsia labs. Patient denies preeclampsia symptoms. Patient has been receiving routine care and blood sugars have been relatively well controlled. Patient notes good movement denies vaginal bleeding or loss of fluid. Patient is a known blood type of O+, rubella status immune, B surface antigen negative, HIV negative, RPR is nonreactive, group beta strep cultures negative. Review of Systems Constitutional: Denies chills, Denies fatigue, Denies fever Ears, nose, mouth and throat: Denies headache Cardiovascular: Reports leg edema Respiratory: Denies dyspnea Gastrointestinal: Denies nausea, Denies vomiting Genitourinary: Reports Past Medical History Past Medical History: No Reported History History of Any Multi-Drug Resistant Organisms: None Reported Past Surgical History: Tonsillectomy Additional Past Surgical History / Comment(s): wisdom teeth removal Past Anesthesia/Blood Transfusion Reactions: Motion Sickness Smoking Status: Never smoker - Past Family History Mother Family Medical History: No Reported History Father Family Medical History: Thyroid Disorder Medications and Allergies Home Medications Medication Instructions Recorded Confirmed Type Aspirin [Adult Low Dose Aspirin EC] 81 mg PO DAILY 01/28/23 02/04/23 History Escitalopram [Lexapro] 20 mg PO DAILY 01/28/23 02/04/23 History Vit No.179/Iron/Folic 1 each PO DAILY 01/28/23 02/04/23 History [ Tablet] metFORMIN HCL 500 mg PO HS 01/28/23 02/04/23 History Allergies Allergy/AdvReac Type Severity Reaction Status Date / Time cephalexin [From Keflex] Allergy Unknown Verified 02/04/23 17:01 Childhood Penicillins Allergy Unknown Verified 02/04/23 17:01 Childhood Exam Osteopathic Statement: *. No significant issues noted on an osteopathic structural exam other than those noted in the History and Physical/Consult. Intake and Output 02/04/23 02/04/23 02/04/23 06:59 14:59 22:59 Other: Weight 115.666 kg Targeted physical exam is performed in this date and negative turner a well-nourished well-developed female in no acute distress, breathing is noted. Nonlabored, heart has a regular rate and rhythm, abdomen is gravid, cervical exam is 50/-3 station Cervidil is placed without difficulty, heart tones evaluation heart tones returned be category 1 and she is not nova. Results Result Diagrams: 02/04/23 17:50 Assessment and Plan (1) Term Current Visit: Yes Status: Acute Code(s): Z34.90 - ENCNTR FOR SUPRVSN OF NORMAL , UNSP, UNSP TRIMESTER SNOMED Code(s): 43716096 (2) GDM, class A2 Current Visit: Yes Status: Acute Code(s): O24.419 - GESTATIONAL DIABETES MELLITUS IN , UNSP CONTROL SNOMED Code(s): 11404433 (3) Gestational HTN Current Visit: Yes Status: Acute Code(s): O13.9 - GESTATIONAL HTN W/O SIGNIFICANT PROTEINURIA, UNSP TRIMESTER SNOMED Code(s): 16389821 Plan: 19-year-old 1 para 0 at 30 weeks presents for induction of labor secondary to gestational diabetes, gestational hypertension. Patient had negative preeclampsia workup. Patient is counseled on Cervidil for induction of labor. Patient states understanding questions are answered. We'll plan Pitocin in the a.m. along with amniotomy possible. Options for analgesia discussed including Stadol, nitrous, epidural. Patient states she will consider.
--- NOTE | 2023-02-06 08:18 | P.DS ---
Providers Date of admission: 02/04/23 16:50 Expected date of discharge: 02/06/23 Attending physician: Ely Garcia Primary care physician: Stated None - Discharge Diagnosis(es) (1) Term Current Visit: Yes Status: Acute (2) GDM, class A2 Current Visit: Yes Status: Acute (3) Gestational HTN Current Visit: Yes Status: Acute (4) Status post vaginal delivery Current Visit: Yes Status: Acute (5) Occiput posterior presentation of fetus Current Visit: Yes Status: Acute (6) Obstetrical laceration, fourth degree Current Visit: Yes Status: Acute Hospital Course: This is a 27-year-old 1 now para 1 that presented to labor and delivery on 02/05 for Cervidil induction of labor. Patient has noted gestational hypertension and gestational diabetes. For full details on this patient please and physical. Patient was admitted to labor and delivery and Cervidil and was placed without difficulty. Patient was noted to 1-2 cm 50% effaced. 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 Patient had the Cervidil pulled, received Nubain 1. Patient was noted to be 4 cm quickly afterwards and did request epidural placement. Epidural was placed without difficulty by the anesthesia department. Patient states through the night she had felt rupture of membranes in addition. Patient progressed through labor eventually being completely dilated. With excellent maternal effort patient had a normal spontaneous vaginal delivery of a viable female in occiput posterior presentation at 1446, weight of 7 lbs. 2 oz., Apgars of 8 and 9 at one and 5 minutes respectively. A shunt did sustain a second-degree midline laceration during delivery which was repaired in usual fashion with 3-0 Rapide. Patient's course has been uneventful. This day #1 she is ambulating and voiding without difficulty. She is tolerating a regular diet without nausea or vomiting. She states her pain is well-controlled. She denies concerns. She would like discharge home at 24 hours if possible. Plan to continue to monitor blood pressures through the day as they have been 130s to 140s over 80s. Patient Condition at Discharge: Good Plan - Discharge Summary New Discharge Prescriptions: No Action metFORMIN HCL 500 mg PO HS Aspirin [Adult Low Dose Aspirin EC] 81 mg PO DAILY Escitalopram [Lexapro] 20 mg PO DAILY Vit No.179/Iron/Folic [ Tablet] 1 each PO DAILY Discharge Medication List Aspirin [Adult Low Dose Aspirin EC] 81 mg PO DAILY 01/28/23 [History] Escitalopram [Lexapro] 20 mg PO DAILY 01/28/23 [History] Vit No.179/Iron/Folic [ Tablet] 1 each PO DAILY 01/28/23 [History] metFORMIN HCL 500 mg PO HS 01/28/23 [History] Follow up Appointment(s)/Referral(s): Ely Garcia DO [Doctor of Osteopathic Medicine] - 2 Weeks Patient Instructions/Handouts: Vaginal Delivery (GEN), Vaginal Delivery (DC) Activity/Diet/Wound Care/Special Instructions: No tub baths or intercourse until 6 weeks . Patient is to call the office make a routine blood pressure check appointment in 2 weeks. Should she have any concerns prior to this appointment she is asked the office. In addition patient will need an appointment at 6 weeks for evaluation. Discharge Disposition: HOME SELF-CARE
[2023-02-06] MEDS: IBUPROFEN 600 MG TAB PO SCH (08:56)
[2023-02-06] MEDS ORDERED: ESCITALOPRAM 20 MG TAB PO SCH (09:00)
[2023-02-06] MEDS ORDERED: PRENATAL VIT-IRON-FOLIC ACID 1 EACH TABLET PO SCH (09:00)
[2023-02-06] MEDS: SENNOSIDES-DOCUSATE SODIUM 1 EACH TAB PO SCH (09:13)
[2023-02-06] MEDS: ACETAMINOPHEN TAB 325 MG TAB PO PRN (11:48)
[2023-02-06 16:33] VITALS: BP 110/72; PULSE 70; RESP 16; TEMP 98.5
== END 2023-02-06 16:13 | disposition home or self-care (01) | DRG 807 ==
LOC: 4FBP 16:50
PROVIDERS: ADMIT Obstetrics & Gynecology Obstetrics; ATTEND Obstetrics & Gynecology Obstetrics
PROC: 3E0P7VZ Introduction of Hormone into Female Reproductive, Via Natural or Artificial Opening (ICD-10-PCS; 2023-02-04)
PROC: 3E033VJ Introduction of Other Hormone into Peripheral Vein, Percutaneous Approach (ICD-10-PCS; principal; 2023-02-05)
PROC: 10E0XZZ Delivery of Products of Conception, External Approach (ICD-10-PCS; principal; 2023-02-05)
PROC: 0KQM0ZZ Repair Perineum Muscle, Open Approach (ICD-10-PCS; principal; 2023-02-05)
DX: O24.425 Gestational diabetes mellitus in childbirth, controlled by oral hypoglycemic drugs (principal); O70.1 Second degree perineal laceration during delivery; O13.4 Gestational [pregnancy-induced] hypertension without significant proteinuria, complicating childbirth; Z79.899 Other long term (current) drug therapy; Z79.82 Long term (current) use of aspirin; Z88.0 Allergy status to penicillin; Z88.1 Allergy status to other antibiotic agents; Z3A.38 38 weeks gestation of pregnancy; Z37.0 Single live birth
CPT/HCPCS: 85025; 86850; 86900; 86901